=== PATIENT | male | born 2000 | race Caucasian/White ===

== ENCOUNTER 2022-06-11 08:58 | Outpatient (REF) | payer OTHER, SELFPAY ==
[2022-06-11 11:27] LABS: MANUAL DIFF FLAG NO
[2022-06-11 11:40] LABS: Appearance Urine Clear; Color Urine Yellow; Glucose Urine UA Negative (Negative); Leukocyte Esterase Urine Negative (Negative); Nitrite Urine Negative (Negative); Urine Blood Negative (Negative); Urine Ketones Negative (Negative); Urine Protein Negative (Neg-Trace)
[2022-06-11 11:48] LABS: Basophils Percent Auto 0.7 % (0-2); Eosinophils Percent Auto 0.7 % (0-4); Hematocrit 45.4 % (42.0-52.0); Hemoglobin 15.6 g/dl (14.0-18.0); Imm Gran Abs Auto 0.02 X10*3/uL (0.00-0.03); Imm Gran Pct Auto 0.3 % (0.0-0.4); Lymphocytes Absolute Auto 1.8 X10*3/uL (1.2-4.9); Lymphocytes Percent Auto 30.3 % (20-40); Mean Corpuscular HGB Conc 34.4 g/dl (31.0-36.0); Mean Corpuscular Hemoglobin 28.4 pg (27.0-33.0); Mean Corpuscular Volume 82.5 fL (80.0-98.0); Mean Platelet Volume 10.4 fL (9.4-12.4); Monocytes Absolute Auto 0.6 X10*3/uL (0.1-1.2); Monocytes Percent Auto 9.6 % (2-11); Neutrophils Absolute Auto 3.5 x10*3/uL (2.0-8.3); Neutrophils Percent Auto 58.4 % (45-73); Platelet Count 225 X10*3/uL (160-400); Red Cell Distribution Width 11.6 % (11.0-16.0)
[2022-06-11 13:35] LABS: Alanine Aminotransferase 22 U/L (0-40); Albumin Level 4.7 g/dL (3.5-5.0); Alkaline Phosphatase 91 U/L (39-117); Anion Gap 12 (12-20); Aspartate Amino Transferase 21 U/L (5-37); Bilirubin Total 1.2 mg/dL (0.0-1.0); Blood Urea Nitrogen 15 mg/dL (9-16); Calcium 9.8 mg/dL (8.4-10.2); Carbon Dioxide 30 mmol/L (22-29); Chloride 100 mmol/L (96-108); Cholesterol 208 mg/dL; Estimated Glomerular Filt Rate > 60; Glucose Fasting 86 mg/dL (60-99); HDL Cholesterol 47 mg/dL; LDL Cholesterol Calculated 143 mg/dl; Potassium 3.8 mmol/L (3.3-5.1); Sodium 138 mmol/L (135-145); TSH reflex Free T4 1.82 uIU/mL (0.32-4.0); Total Protein 7.1 g/dL (6.5-8.0); Triglycerides 91 mg/dL
== END 2022-06-11 08:59 | disposition home or self-care (01) ==
LOC: HO.HMGCLDS 08:58
PROVIDERS: PCP Nurse Practitioner Family; Visit Provider Nurse Practitioner Family
DX: Z00.00 Encounter for general adult medical examination without abnormal findings (principal)
CPT/HCPCS: 36415; 80053; 80061; 81003; 84443; 85025

== ENCOUNTER 2023-02-17 09:57 | Outpatient (AMB) | payer OTHER, SELFPAY ==
--- NOTE | 2023-02-17 10:05 | MHC.PC.OV ---
Vital Signs 02/17/23 10:06 Height 5 ft 8.5 in Weight 167 lb 8 oz BMI 25.1 BP 118/72 Blood Pressure Location Rt brachial Position Sitting Pulse 78 Pulse Source Pulse Oximeter Pulse Oximetry (%) 97 Oxygen Delivery Method Room Air Intake Visit Reasons: 6 month follow up Allergies No Known Allergies Allergy (Verified 02/17/23 10:10) Tobacco use date assessed: 02/17/23 Dental Screening Dental Screen Date: 02/17/23 Did you have a dental visit in the last 12 months?: Yes Did you have a dental problem in the last 6 months where you did not have access to dental care?: No Was dental information given to patient?: Patient has dentist HPI 6 month follow up HPI Details hematospermia: Pt reports noticing blood in his semen once 2 years ago. He states that this has not happened again. Pt will let me know if this occurs again. He has never smoked. No family hx of prostate cancer. Denies hematuria, dribbling with urination, and nocturia. [facility] Family History Paternal Grandfather Substance use disorder Social History Housing: House Patient Tobacco Use Status: Never used Tobacco e-Cigarette/Vaping Use: Never Used Second Hand Smoke Exposure: No service: No Current occupational status: employed Current occupation: [employer] Current occupational exposures/hazards: Yes Cognitive needs: No Hearing needs: No Vision needs: No Questionnaire Thrive Questionnaire Date Thrive assessed: 05/17/22 DANIEL-7 AMB Questionnaire DANIEL-7 Date DANIEL - 7 assessed: 05/17/22 Source: Developed by Drs. Jose L Holt, Essie Gandhi, Quinten Owens and colleagues, with an educational dev from [employer]. Review of Systems Const Reports as per HPI Physical exam (Primary Care) Vital Signs: Last Vital Signs Pulse 78 02/17/23 10:06 BP 118/72 02/17/23 10:06 Pulse Ox 97 02/17/23 10:06 Oxygen Delivery Method Room Air 02/17/23 10:06 BMI result Body Mass Index 25.1 Tobacco/Smoking Status: Tobacco use Status Tobacco use date assessed 02/17/23 02/17/23 10:12 Patient Tobacco Use Status Never used Tobacco 02/17/23 10:12 e-Cigarette/Vaping Use Never Used 02/17/23 10:12 Thrive Assessment: Date of Thrive Assessment Date Thrive assessed 05/17/22 02/17/23 10:12 Const General: cooperative Orientation/consciousness: patient oriented x3 Resp Effort & Inspection: normal respiratory effort Auscultation: clear to auscultation bilaterally Cardio Rate: regular rate Rhythm: regular rhythm Heart sounds: S1 normal heart sound present and S2 normal heart sound present Other: Refused ANGEL Neuro General: patient oriented x3 Psych Appearance: grossly normal Mental Status: mental status grossly normal Speech and movement: Normal speech and movement present Affect: normal affect Attitude: cooperative Thought process: Normal thought process present Thought content: Normal thought content present Insight: Good insight present (Psych) Judgement: Good judgement present (Psych) Assessment and Plan Assessment & Plan (1) Hematospermia: Code(s): R36.1 - Hematospermia Plan: Continue to monitor Plan The patient agreed to the use of a medical anthropology director for this encounter. Scribed for KIAH Shaffer by Cecilia King medical anthropology director, on 02/17/2023 at 10:30 EST. Coding Level of Care Code Est Pt Level 3 (03226) Diagnoses Hematospermia R36.1
[2023-02-17 10:06] VITALS: BP 118/72; PULSE 78; O2SAT 97; BMI 25.1
== END 2023-02-17 11:24 | disposition home or self-care (01) ==
PROVIDERS: PCP Nurse Practitioner Family; Visit Provider Nurse Practitioner Family
DX: R36.1 Hematospermia (principal)
CPT/HCPCS: 99213

== ENCOUNTER 2023-09-15 14:24 | Outpatient (AMB) | payer OTHER, SELFPAY ==
--- NOTE | 2023-09-15 14:28 | MHC.OFFWIV ---
Intake Vital Signs 09/15/23 14:29 Height 5 ft 8.5 in Weight 167 lb BMI 25.0 BP 126/62 Blood Pressure Location Rt brachial Position Sitting Pulse 80 Pulse Source Pulse Oximeter Pulse Oximetry (%) 97 Oxygen Delivery Method Room Air Intake Visit Reasons: EP Athletes foot (lobby) Intake Note: Pt is here c/o possible athletes foot. Pt states he has white spots on his toes and is using otc medication. Patient Tobacco Use Status: Never used Tobacco Allergies No Known Allergies Allergy (Verified 09/15/23 14:29) HPI EP Athletes foot (lobby) HPI Details This is a 22 year old male patient who presents today with a 1 week history of right foot redness, tenderness, peeling, primarily affecting lateral 3 digits. He has been wearing steel-toed boots and standing for long periods while at work. He tried some otc athletes foot cream with some minor benefit. PFSH Family History Paternal Grandfather Substance use disorder Social History Housing: House Patient Tobacco Use Status: Never used Tobacco e-Cigarette/Vaping Use: Never Used Second Hand Smoke Exposure: No service: No Current occupational status: employed Current occupation: [employer] Current occupational exposures/hazards: Yes Cognitive needs: No Hearing needs: No Vision needs: No Review of Systems Const All systems reviewed & are unremarkable except as noted in HPI and below Physical Exam Vital Signs: Last Vital Signs Pulse 80 09/15/23 14:29 BP 126/62 09/15/23 14:29 Pulse Ox 97 09/15/23 14:29 Oxygen Delivery Method Room Air 09/15/23 14:29 BMI result Body Mass Index 25.0 Const General: cooperative, healthy appearing and no acute distress Resp Effort & Inspection: normal respiratory effort Extrem Right lower extremity: normal capillary refill, no joint enlargement and foot (mild erythema/tenderness, with flaky/crusty areas between lat 3 digits) Details: normal capillary refill and toes with normal ROM Psych Appearance: grossly normal Mental Status: mental status grossly normal Speech and movement: Normal speech and movement present Assessment & Plan Assessment & Plan (1) Tinea pedis, right: Code(s): B35.3 - Tinea pedis Plan: Symptoms consistent with athlete's foot. I have prescribed both an antifungal cream and powder for patient to try. We reviewed importance of foot hygiene and keeping foot, particularly between toes, clean and dry. Reviewed changing socks frequently and trying to change out of work boots immediately after work into perhaps sandals to limit the time his feet are subjected to such moisture/heat. If he does not improve with treatment, he can return to the clinic for further evaluation. He agrees to plan. Medications: New nystatin Apply powder to clean, dry foot twice a day as needed until symptoms resolve. 1 appl topical BID 15 grams 1RF B35.3 - Tinea pedis ketoconazole 2% Apply cream to affected area on right foot twice a day as needed until symptoms resolve. 1 appl topical BID 30 grams 0RF B35.3 - Tinea pedis Coding Level of Care Code Est Pt Level 3 (70687) Diagnoses Tinea pedis, right B35.3
[2023-09-15 14:29] VITALS: BP 126/62; PULSE 80; O2SAT 97; BMI 25.0
== END 2023-09-15 14:53 | disposition home or self-care (01) ==
PROVIDERS: PCP Nurse Practitioner Family; Visit Provider Nurse Practitioner Family
DX: B35.3 Tinea pedis (principal)
CPT/HCPCS: 99213

== ENCOUNTER 2025-05-07 14:26 | Outpatient (AMB) | payer OTHER, SELFPAY ==
--- NOTE | 2025-05-07 14:30 | AM.OFFWIN_ITS ---
Intake Vital Signs 05/07/25 14:32 Height 5 ft 8.5 in Weight 164 lb BMI 24.6 BP 118/78 Blood Pressure Location Lt brachial Position Sitting Pulse 80 Pulse Source Pulse Oximeter Temp 97.6 F Temp Source Oral Pulse Oximetry (%) 98 Oxygen Delivery Method Room Air Intake Visit Reasons: EP-blood in urine Intake Note: Patient presents with c/o blood in urine this morning but has not happened since. Patient Tobacco Use Status: Never used Tobacco Allergies No Known Allergies Allergy (Verified 05/07/25 14:34) Do you need a note to return to daycare/school/sports/work: No HPI HPI Comments History of Present Illness Details History of Present Illness - The patient is a 24-year-old male pres enting with blood in urine on one occasion this am.. - Hematuria was noted once this morning without any associated pain in the lower back, sides, or abdomen. - The patient denies any history of kidn ey stones and reports no recent trauma to the urinary tract. - There is a past occurrence of blood in his urine approximately five years ago, which was also a one-time event. - The patient has been consuming increas ed amounts of water to monitor for recurrence, which has not occurred. - Family history includes concerns about blood in his urine being a sign of serious conditions such as cancer. Review of Systems - Genitourinary: Reports hematuria. Dada es dysuria, frequency, or urgency. - Musculoskeletal: Denies back pain or f lank pain. All systems reviewed and are unremarkable except as noted in HPI Physical Exam General: Cooperative, healthy appearing, comfortable, no acute distress and well developed Orientation: Patient oriented x3 Limitations: No limitations Head: Normal to inspection Ears: Hearing grossly normal bilaterally Nose: Normal External nose present Face and sinus: Normal facial exam Eyes: Appearance normal, both eyes and all related structures Neck: Normal visual inspection and Yes full ROM Respiratory: Normal respiratory effort and able to speak in complete sentences. Skin: No rashes or lesions noted Neuro: Patient oriented x3 Extremities: Normal to inspection [facility] Medical History (Updated 05/07/25 @ 14:51 by Jacquelin Garcia PA-C) Hematuria Family History Paternal Grandfather Substance use disorder Social History (Reviewed 09/15/23 @ 14:55 by JENNIFER Tellez Housing: House Patient Tobacco Use Status: Never used Tobacco e-Cigarette/Vaping Use: Never Used Second Hand Smoke Exposure: No service: No Current occupational status: employed Current occupation: [employer] Current occupational exposures/hazards: Yes Cognitive needs: No Hearing needs: No Vision needs: No Physical Exam Vital Signs: Last Vital Signs Temp 97.6 F 05/07/25 14:32 Pulse 80 05/07/25 14:32 BP 118/78 05/07/25 14:32 Pulse Ox 98 05/07/25 14:32 Oxygen Delivery Method Room Air 05/07/25 14:32 BMI result Body Mass Index 24.6 Results AMB Urinalysis, Automated UA Leukoctes 0 [place]/uL Last Edit by Reyna Ovalles CMA on 05/07/25 14:49 UA Nitrite Negative Last Edit by Reyna Ovalles CMA on 05/07/25 14:49 UA Urobilinogen 0.2 mg/dL Last Edit by Reyna Ovalles CMA on 05/07/25 14: 49 UA Protein 0 mg/dL Last Edit by Reyna Ovalles CMA on 05/07/25 14:49 UA pH 6.0 Last Edit by Reyna Ovalles CMA on 05/07/25 14:49 UA Blood 0 Luis E/uL Last Edit by Reyna Ovalles CMA on 05/07/25 14:49 UA Specific [place] 1.010 Last Edit by Reyna Ovalles CMA on 05/07/25 14 :49 UA Ketone Negative Last Edit by Reyna Ovalles CMA on 05/07/25 14:49 UA Bilirubin 0 mg/dL Last Edit by Reyna Ovalles CMA on 05/07/25 14:49 UA Glucose 0 mg/dL Last Edit by Reyna Ovalles CMA on 05/07/25 14:49 Assessment & Plan Assessment & Plan (1) Hematuria: Code(s): R31.9 - Hematuria, unspecified Qualifiers: Hematuria type: unspecified type Plan: Patient was informed and verbally consented to the use of an ambient scribe for clinic note documentation during this visit. Hematuria - Urinalysis was performed to check for microscopic hematuria, UA with no blood today. - Screening for Chlamydia and gonorrhea was conducted as part of the differential diagnosis; also could be trauma - Advised to monitor for recurrence and consult primary care if hematuria persists. Orders: Orders CT NG by PCR Urine Today R31.9 - Hematuria, unspecified AMB Urinalysis Automated Today Z13.9 - Encounter for screening, unspecified Coding Level of Care Code Est Pt Level 3 (42152) Diagnoses Hematuria R31.9 Hematuria type: unspecified type
[2025-05-07 14:32] VITALS: BP 118/78; PULSE 80; TEMP 36.4; O2SAT 98; BMI 24.6
--- OUTSIDE RECORDS SUMMARY | 2025-05-07 17:28 | XMS_ITS | Clinical Summary ---
Author Organization [facility] Address [address] [place] [id number] Phone Care Team Providers Care Fur Ironer Name Role Phone Unavailable Primary Care Provider Unavailabl e Allergies Active Allergy Reactions Criticality Noted Date Comments Environmental Seasonal Medications fexofenadine 180 MG tablet Take 180 mg by mouth daily. Active Active Problems Problem Noted Date Diagnosed Date Hematochezia 07/21/2020 Overview (07/21/2020): 07/21/2020 episode of red blood in toilet w/o constipation or diarrhea. Occasional red blood on toilet paper but not stool when wiping. Small hemorrhoid on exam Assessment & Plan (07/21/2020 11:28 AM EST): 07/21/2020 episode of red blood in toilet w/o constipation or diarrhea. Occasional red blood on toilet paper but not stool when wiping. Small hemorrhoid on exam I discussed small hemorrhoid on exam. No concerning symptoms by history such as weight loss or diarrhea. Option of seeing a surgeon if bothered by hemorrhoid. Call if any new or worsening symptoms Recommend a daily fiber supplement such as Metamucil to help keep stools soft Eczema 05/15/2018 Assessment & Plan (05/15/2018 11:46 AM EST): Moisturize behind ears daily post shower and use 1% Hydrocortisone if itchy for 3-4 days at bedtime, follow up w Dr. Smith if worsens. Other and unspecified hyperlipidemia 10/23/2014 Overview (04/10/2018): Familial hyperlipidemia (272.4) Onset: 10/23/2014 Added by: Santy Smith Mild intermittent asthma without complication Immunizations Immunization Administration Dates Next Due DTaP 5 12/28/2004, 2,06/28/2001,04/28,02/24/2001,02/23/2001 H1N1 07/15/2009,06/11/2009 Hep A, ped/adol 10/23/2014,08/23/2013 Hep B, ped/adol 06/28/2001, 1,01/25/2001,01/25,2000,2000 Hib (PRP-T) 04/09/2002, 2,06/28/2001,06/28,04/28/2001,04/28/2001,02/24/2001 ,02/23/2001 IPV 12/28/2004, 5,04/09/2002,04/09,04/28/2001,04/28/2001,02/24/2001 ,02/23/2001 Influenza, injectable, quadr ivalent, preservative free 06/21/2019,05/15/2018 Influenza, injectable, trivalent 06/15/2006,04/03,05/07/2004 Influenza, injectable, triva lent, preservative free 05/04/2010,06/11/2009,06/20/2008 Influenza, intranasal, quadrivalent 04/18/2015,1 ,04/13/2013 Influenza, intranasal, trivalent 03/15/2012,03/05 MMR 12/28/2004, 5,01/08/2002,01/08 Meningococcal B Trumenba 06/21/2019 Meningococcal Conj (Menactra) MCV4P 05/15/2018,1 08/07/2011 Pneumococcal Conjugate 12/26/2002,2002,06/28/2001,06/28,04/28/2001,04/28/2001,02/24/2001 ,02/23/2001 Tdap 06/06/2012 Varicella 04/10/2009,01/08/2002,01/08/2002 Family History Medical History Relation Name Comments Hearing loss Brother Hyperlipidemia Father Hearing loss Maternal Grandfather Hearing loss Mother Hyperlipidemia Paternal Grandfather Hyperlipidemia Paternal Grandmother Relation Name Status Comments Brother Alive Brother: Alive and well Father Alive Father: Alive a nd well Maternal Grandfather Mother Alive Mother: Alive a nd well Paternal Grandfather Paterna l grandfather: Hyperlipidemia Paternal Grandmother Paterna l grandmother: Hyperlipidemia Social History Tobacco Use Types Packs/Day Years Used Date Smoking Tobacco: Never Smokeless Tobacco: Never Comments:Never Smoker Hunger/Food Answer Date Recorded In the last 12 months, did y ou or your family ever eat less than you felt you should because there wasn't enough money for food? No 06/21/2019 Stable Housing Answer Date Recorded Are you worried that in the next 2 months you may not have stable housing? No 06/21/2019 Transportation Concerns Answer Date Rec orded In the last 12 months, have you or your family ever had to go without healthcare because you didn't have a way to get there? No 06/21/2019 Hazards in Home Answer Date Recorded Think about the place you li ve. Do you have problems with any of the following? Pests (mice or roaches), mold, no/not working smoke detectors, water leaks, no window guards. No 2018 Financing Utilities Answer Date Recorde d In the last 12 months, has t he electric, gas, oil, or water company threatened to shut off your services in your home? No 06/21/2019 Safety at Home Answer Date Recorded Are you or your family worried about feeling saf e in your home? No 06/21/2019 Outside Support Answer Date Recorded Do you feel that you need mo re support from other people or programs to help you care for yourself or your family? No 06/21/2019 Understanding Health Concerns Answer Da te Recorded Do you need help understandi ng your or your child's healthcare needs (diagnosis, medications, plan, etc.)? No 06/21/2019 Financing Health Concerns Answer Date R ecorded In the last 12 months, was t here a time when your child needed to see a doctor or get medications or supplies but could not because of cost? No 06/21/2019 Missing School or Work Answer Date Jason rded Did you or your child miss s chool or work because of a health problem that could have been avoided? No 06/21/2019 Sex and Gender Information Value Date Recorded Sex Assigned at Not on file Legal Sex Male 6:42 PM EDT Gender Identity Not on file Sexual Orientation Not on file Last Filed Vital Signs Vital Sign Reading Time Taken Comments Blood Pressure 120/58 03/19/2021 4:32 PM EDT Pulse 108 07/21/2020 10:55 AM EST Temperature 37 C (98.6 F) 03/19/2021 4:32 PM EDT Respiratory Rate 18 09/11/2019 4:20 PM EDT Oxygen Saturation 98% 07/21/2020 10: 55 AM EST Inhaled Oxygen Concentration - - Weight 79.7 kg (175 lb 11.3 oz) 021 10:55 AM EST Height 174 cm (5' 8.5 ) 07/21/2020 10:5 5 AM EST Body Mass Index 26.32 07/21/2020 10:55 AM EST Plan of Treatment Health Maintenance Due Date Last Done Comments HPV Vaccines (1 - Male 3-dos e series) 12/26/2015 Men B Vaccine (2 of 2 - Trum enba SCDM 2-dose series) 12/21/2019 06/21/2019 DTaP,Tdap,and Td Vaccines (7 - Td or Tdap) 06/06/2022 06/06/2012, 12/28/2004, 06/28/2002, Additional history exists Influenza Vaccines (#1) 2025 06/21/20, 05/15/2018, 04/18/2015, Additional history exists COVID-19 Vaccine (1 - 2024-2 6 season) 2025 Hepatitis B Vaccines Completed 06/28/2001, 06/28/2001, 01/25/2001, Additional history exists HIB Vaccines Completed 04/09/2002, 01/2002, 06/28/2001, Additional history exists Pneumococcal Vaccine Completed 12/26/2002, 12/26/2002, 06/28/2001, Additional history exists IPV Vaccines Completed 12/28/2004, 12/03, 04/09/2002, Additional history exists MMR Vaccines Completed 12/28/2004, 12/03, 01/08/2002, Additional history exists Varicella Vaccines Completed 04/10/2009, 0 01/08/2002, 01/08/2002 Hepatitis A Vaccines Completed 10/23/2014, 08/23/19 14 Meningococcal Vaccine Completed 05/15/2018, 012 Insurance [facility]
--- OUTSIDE RECORDS SUMMARY | 2025-05-07 17:28 | XMS_ITS | Encounter Summary ---
Author Organization [facility] Address [address] [place] [address] Phone Care Team Providers Care Drop Wire Operator Name Role Phone Santy Smith MD Primary Care Provider [phone] Encounter Details Date Type Department Care Team (Late st Contact Info) Description 03/25/2011 Conversion Encounter [facility] [address] [phone] Social History Tobacco Use Types Packs/Day Years Used Date Smoking Tobacco: Never Assessed Sex and Gender Information Value Date Recorded Sex Assigned at Not on file Legal Sex Male 6:42 PM EDT Gender Identity Not on file Sexual Orientation Not on file documented as of this encounter Plan of Treatment Not on file documented as of this encounter Visit Diagnoses Not on filedocumented in this encounter Care Teams Drop Wire Operator Relationship Specialty Start Date End Date Santy Smith MD [address] [place] [phone] PCP - General 11/09/17 10/03/22 documented as of this encounter
--- OUTSIDE RECORDS SUMMARY | 2025-05-07 17:28 | XMS_ITS | Encounter Summary ---
Author Organization [facility] Address [address] [place] [address] Phone Care Team Providers Care Subsurface Augmentee Operator Name Role Phone Santy Smith MD Primary Care Provider [phone] Encounter Details Date Type Department Care Team (Late st Contact Info) Description 02/17/2017 Conversion Encounter [facility] - [address] [phone] Social History Tobacco Use Types Packs/Day Years [...] on filedocumented in this encounter Care Teams Subsurface Augmentee Operator Relationship Specialty [place] [address] [place] [id number] PCP - General 11/09/17 10/03/22 documented as of this encounter
[2025-05-08 01:16] LABS: CT PCR Urine NOT DETECTED (Not Detect.); NG PCR Urine NOT DETECTED (Not Detect.)
== END 2025-05-07 14:52 | disposition home or self-care (01) ==
PROVIDERS: PCP Nurse Practitioner Family; Visit Provider Physician Assistant
DX: Z13.9 Encounter for screening, unspecified (principal); R31.9 Hematuria, unspecified

== ENCOUNTER → 2025-05-07 14:26 | Outpatient (BNVA) | payer OTHER, SELFPAY | PROVIDERS: PCP Nurse Practitioner Family; Visit Provider Physician Assistant | DX: R31.9 Hematuria, unspecified (principal) | CPT/HCPCS: 81003; 87491; 87591 ==

== ENCOUNTER 2025-06-07 14:29 | Outpatient (REF) | payer OTHER, SELFPAY ==
[2025-06-07 16:16] LABS: Appearance Urine Clear; Glucose Urine UA Negative (Negative); PH 7.0 (5.0-9.0); Specific Gravity - Urine <= 1.005 (1.005-1.025)
== END 2025-06-07 14:30 | disposition home or self-care (01) ==
LOC: HO.HMGCLDS 14:29
PROVIDERS: PCP Nurse Practitioner Family; Visit Provider Nurse Practitioner Family
DX: R31.9 Hematuria, unspecified (principal)
CPT/HCPCS: 81003; 87086; 88112

== ENCOUNTER 2025-07-02 15:06 | Outpatient (REF) | payer OTHER, SELFPAY ==
--- NOTE | ~2025-07-02 | CT_ITS ---
EXAMINATION: CT ABDOMEN PELVIS UROGRAPHY WITHOUT THEN WITH IV CONTRAST HISTORY: R31.9 - Hematuria, unspecified COMPARISON: There are no prior studies available for comparison. TECHNIQUE: CT scan of the abdomen and pelvis was performed before and after the intravenous administration of 85 mL Omnipaque 350. Postcontrast images were obtained using a split bolus technique. Coronal and sagittal reformatted images were generated and reviewed. Oral contrast material was not administered per department protocol. This CT exam was performed with one or more of the following dose reduction techniques: automated exposure control, adjustment of the mA and/or kV according to patient size, use of iterative reconstruction technique. DLP: 500 mGy-cm ABDOMEN: LOWER CHEST: The visualized lung bases are clear. There is no pleural effusion. CARDIOVASCULATURE: The heart is normal in size. There is no pericardial effusion. LIVER: The liver is normal in size and contour. No liver mass is identified. The hepatic and portal veins are patent. GALLBLADDER / BILE DUCTS: The gallbladder is unremarkable. There is no intra or extrahepatic biliary ductal dilatation. SPLEEN: The spleen is normal in size. No focal splenic lesion is identified. PANCREAS: The pancreas is unremarkable in appearance. ADRENAL GLANDS: Within normal limits. KIDNEYS/RETROPERITONEUM: No renal or ureteral calculi are identified. There is no hydronephrosis or hydroureter. No renal masses are identified. The intrarenal collecting systems are unremarkable in appearance. No ureteral filling defects are identified. LYMPH NODES: No abdominal or pelvic lymphadenopathy. VASCULATURE: The abdominal aorta is normal in caliber. MESENTERY/PERITONEUM: No free fluid. No masses. There is no free intraperitoneal gas. STOMACH: The stomach is unremarkable. SMALL BOWEL: The small bowel is normal in caliber. COLON: The colon is unremarkable. APPENDIX: Normal. URINARY BLADDER/PELVIC ORGANS: The urinary bladder is unremarkable. The prostate is normal in size. BONES / SOFT TISSUES: No suspicious bony or soft tissue abnormalities. CT/CT urogram IMPRESSION: Unremarkable CT urogram. Electronically signed by: Jose L Romero MD 07/03/2025 07:05 AM [facility]
[2025-07-02] MEDS: iohexoL 350 MG/ML 100 ML INFUS..BTL IV (15:48)
--- OUTSIDE RECORDS SUMMARY | 2025-07-02 18:36 | XMS_ITS | Clinical Summary ---
Author Organization [facility] Address [address] [place] [phone] Phone Care Team Providers Care Director Medical Writing Name Role Phone Unavailable Primary Care Provider [...] 14 Meningococcal Vaccine Completed 05/15/2018, 012 Insurance [facility]
--- OUTSIDE RECORDS SUMMARY | 2025-07-02 18:36 | XMS_ITS | Encounter Summary ---
Author Organization [facility] Address [address] [place] [address] Phone Care Team Providers Care Art Tracer Name Role Phone Santy Smith MD Primary Care Provider [phone] Encounter Details Date Type Department Care Team (Late st Contact Info) Description 03/25/2011 Conversion Encounter [facility] - [address] [phone] Social History Tobacco Use Types Packs/Day Years [...] on filedocumented in this encounter Care Teams Art Tracer Relationship Specialty Start Date End Date Santy Smith MD [address] [place] [id number] PCP - General 11/09/17 10/03/22 documented as of this encounter
--- OUTSIDE RECORDS SUMMARY | 2025-07-02 18:36 | XMS_ITS | Encounter Summary ---
Author Organization [facility] Address [address] [place] [address] Phone Care Team Providers Care Die Tester Name Role Phone Santy Smith MD Primary Care Provider [phone] Encounter Details Date Type Department Care Team (Late st Contact Info) Description 02/17/2017 Conversion Encounter [facility] - [address] [phone] Social History Tobacco Use Types Packs/Day Years [...] on filedocumented in this encounter Care Teams Die Tester Relationship Specialty [place] [address] [place] [id number] PCP - General 11/09/17 10/03/22 documented as of this encounter
== END 2025-07-02 15:07 ==
LOC: HO.CT 15:06
PROVIDERS: PCP Nurse Practitioner Family; Visit Provider Nurse Practitioner Family
DX: R31.9 Hematuria, unspecified (principal)
CPT/HCPCS: 74178; Q9967

== ENCOUNTER → 2025-07-02 15:08 | Outpatient (BNV) | payer OTHER, SELFPAY | PROVIDERS: PCP Nurse Practitioner Family; Visit Provider Radiology Diagnostic Radiology | DX: R31.9 Hematuria, unspecified (principal) | CPT/HCPCS: 74178 ==